=== PATIENT | female | born 2000 | race Hispanic/Latino ===

== ENCOUNTER 2023-10-20 21:58 | Observation (INO) | payer MEDICAID ==
[~2023-10-20] VITALS: Ht 165.1 cm; Wt 119.3 kg
[2023-10-20 21:59] VITALS: BP 148/84; PULSE 88; RESP 16
[2023-10-20 22:30] LABS: APPEARANCE,URINE CLEAR (CLEAR); BILIRUBIN,URINE NEGATIVE (NEGATIVE); COLOR,URINE LIGHT-YELLOW (YELLOW); GLUCOSE, URINE (UA) NEGATIVE (NEGATIVE); KETONES,URINE NEGATIVE (NEGATIVE); LEUKOCYTE ESTERASE ,URINE NEGATIVE Leu/uL (NEGATIVE); NITRATE,URINE NEGATIVE (NEGATIVE); PH,URINE 6.5 (5.0-8.0); PROTEIN,URINE NEGATIVE (NEGATIVE); UROBILINOGEN,URINE 0.2 mg/dL (0.2-1.0)
[2023-10-20 22:33] LABS: ADD UA MICROSCOPIC YES
[2023-10-20 22:36] LABS: MUCUS,URINE RARE LPF (None Seen); SQUAMOUS EPITHELIAL CELL,UR RARE /HPF (0-2)
== END 2023-10-21 01:10 | disposition home or self-care (01) ==
LOC: EDH 21:58 → LDH 21:59
PROVIDERS: ADMIT Obstetrics & Gynecology; ATTEND Obstetrics & Gynecology
DX: O26.893 Other specified pregnancy related conditions, third trimester (principal); R10.30 Lower abdominal pain, unspecified; Z3A.38 38 weeks gestation of pregnancy
CPT/HCPCS: 81001; G0378 ×3; G0379